=== PATIENT | female | born 1965 | race Caucasian/White ===

== ENCOUNTER 2018-05-10 14:18 | Emergency (ER) | payer BC, SELFPAY ==
[2018-05-10] VITALS (7 sets, daily range): BP systolic 125–158; BP diastolic 69–90; PULSE 88–111; RESP 18; TEMP 37–37.7; O2SAT 95–100
--- NOTE | 2018-05-10 14:41 | W.ED.GENAD ---
Discharge Plan Disposition Patient Disposition: HOME Condition: Fair Discharge Details Chief Complaint: Urinary Clinical Impression: UTI (urinary tract infection) Reason For Visit: urinary Primary Care Provider: Viry,Local ED Provider: Olya Doty Home Meds and New Rx's Prescriptions: New cephalexin [Keflex] 500 mg capsule 500 mg PO BID Qty: 10 RF: 0 phenazopyridine [Pyridium] 200 mg tablet 200 mg PO TID PRN (Reason: pain) 0 Days Qty: 6 RF: 0 Continue cetirizine 10 mg Tablet 10 mg PO DAILY RF: 0 Discharge Instructions Instructions: Urinary Tract Infection in Women (ED) Additional Instructions: Encourage hydration. Tylenol and/or ibuprofen as needed for discomfort. Please take Keflex as prescribed. Even if symptoms improve, please take the entire course. Pyridium was prescribed to help with symptomatic management. If you develop fever/chills, increased pain, inability to hydrate, shortness of breath, increased headache, neck pain, rash or other new/worsening symptoms please seek care urgently once again. I have asked her health care analyst to help facilitate follow-up with primary care, you should receive a call shortly. Medical Decision Making Patient is a 52-year-old female, with history of [id number]-biotudxxc diabetes, presented with chief complaint of dysuria. She reports that when she woke this morning she noted her urine to be quite dark. States she did notice a change in the color on the toilet paper. Denies any rajesh red blood. States she has had some hot sensation associated with urination. Does increase increased frequency and urgency. States the urgency has been to the point that she was incontinent x1 today. Denies any abdominal pain. No change in stool habits. No nausea or vomiting. States she is having some low back pain and indicates the low lumbar spine, as area of discomfort. No CVA tenderness on exam. Just endorsing a mild headache. Reports that she infrequently has headaches. States is quite mild. No thunderclap onset. Denies any change in her vision. No nuchal rigidity. She reports that she is been feeling feverish today but is currently afebrile. Is not taken any antipyretics today. Denies any vaginal symptoms. Patient is status post hysterectomy. No vaginal discharge or vaginal bleeding that she is noted. Pulse 88, patient's oxygen 100%, temp 37 ?C. Plan to obtain urinalysis, CBC and CMP to evaluate for kidney dysfunction. Patient first arrived, nursing staff obtained a urine specimen which was noted to be quite brown. Laboratory evaluation significant for elevated white count of 14 with shift. CMP without significant abnormlality, renal function appropriate. Urinalysis significant for large amount of blood, trace ketones, small bilirubin. Negative for leukocyte esterase and negative nitrite. Secondary to the blood, bacteria and epithelial counselor not applicable. Discussed the findings with the patient. And having difficulty tying all the patient's symptoms together. She continues to endorses mild headache. Is become more tachycardic with a heart rate of 110 she remains afebrile. Did receive Tylenol and ibuprofen to help with discomfort. She also endorsing some body aches. Again, no CVA tenderness, no abdominal pain. No upper respiratory symptoms. We will run influenza. I did discuss with the patient as her symptoms began this morning, and may be just too early to know the exact source of infection. With the blood in the urine, if the influenza screening is negative, I plan to treat for presumed UTI. However, I would like the patient to have prompt follow-up as well as monitor for new or worsening symptoms. Patient negative for influenza a and B. Discussed these findings with the patient. Advised at this point that her symptoms are really point towards a urinary tract infection which may also be causing a spike in her WBC as well as the source of the hematuria. Patient will be treated with Keflex. I encouraged hydration. Advised Tylenol and/or ibuprofen as needed for discomfort. We discussed new/worsening symptoms and when to seek care urgently once again. I have asked her health care analyst help facilitate follow-up with primary care. Urine was sent for culture. We will contact her with any unusual results or if we need to change antibiotic. All of her questions and concerns were addressed and she is in agreement with this plan. HPI General Mode of arrival: ambulatory. Date/Time Provider Initiated Documentation: 05/10/18 14:28. Limitations to Documentation: no limitations. Information obtained by: patient. History of Present Illness 52 year old F presents to the emergency department with the chief complaint of dysurea, headache, described as mild, with intensity rated at 3. Quality is described as aching, and is localized to the head. Patient reports radiation to back (endorsing low back discomfort, also rated at 3/10). Patient started experiencing this hour(s) and it has been constant. No relieving factors improve symptom(s), No exacerbating factors reported . Patient notes fever/chills (states she feels feverish) and headaches; denies chest pain, cough, loss of appetite, malaise, nausea/vomiting, rash, shortness of breath and syncope. Patient did receive the following treatments prior to arrival, none Related Data Home Medications Medication Instructions Recorded Confirmed cephalexin [Keflex] 500 mg PO BID #10 cap 05/10/18 cetirizine 10 mg PO DAILY 05/10/18 05/10/18 phenazopyridine [Pyridium] 200 mg PO TID PRN 0 Days #6 tab 05/10/18 Previous Rx's Medication Instructions Recorded cephalexin [Keflex] 500 mg PO BID #10 cap 05/10/18 phenazopyridine [Pyridium] 200 mg PO TID PRN 0 Days #6 tab 05/10/18 Allergies Allergy/AdvReac Type Severity Reaction Status Date / Time codeine AdvReac Nausea Unverified 05/10/18 14:33 erythromycin base AdvReac Nausea Unverified 05/10/18 14:33 General Stated Complaint: Urinary INGA: 3 Review of Systems Constitutional Reports as per HPI, Denies chills, Reports fever(s), Reports headache(s) and Denies poor appetite ENT Reports headache(s) Cardiovascular Reports as per HPI, Denies chest pain and Denies dyspnea Respiratory Reports as per HPI, Denies cough and Denies dyspnea Gastrointestinal Reports as per HPI, Denies abdominal pain, Denies melena, Denies change in bowel habits, Denies change in stool character, Denies nausea and Denies vomiting Genitourinary Reports as per HPI, Denies abnormal vaginal bleeding, Reports amenorrhea (patient s/p hysterectomy), Reports hematuria, Reports urinary frequency, Denies difficulty voiding, Denies genital pruritis, Denies genital lesions, Reports dysuria, Denies pelvic pain, Denies flank pain, Reports urinary incontinence, Reports urinary urgency, Denies vaginal discharge, Denies vaginal odor and Denies vaginal pruritus Musculoskeletal Reports as per HPI and Reports back pain Integumentary/Breasts Reports as per HPI and Denies rash Neurologic Reports headache(s) [facility] Social History Smoking/Tobacco Use Status: Former Tobacco Use Social History Smoking/Tobacco Use Status: Former Tobacco Use Exam Const General: cooperative, healthy appearing, comfortable, no acute distress, well developed and well groomed Nutritional Appearance: average body habitus and well nourished Orientation: alert and awake Resp Effort & Inspection: normal respiratory effort and no respiratory distress Auscultation: clear to auscultation bilaterally, no rales, no rhonchi and no wheezes Cardio Rate: regular rate Rhythm: regular rhythm Heart Sounds: S1 normal and S2 normal GI Inspection: normal to inspection Palpation: soft, no hepatosplenomegaly, not firm, no guarding, not rigid and nontender Auscultation: normal bowel sounds Back/Spine/Pelvis Back: no CVA tenderness Thoracic/Lumbar Spine: thoraco-lumbar ROM normal and lumbar spinal tenderness (no midline or paraspinal tenderness with palpation, patient is endorsing discomfort across the lower back, she reports minimal discomfort with palpation over the lateral aspects of the lower back, medial t the SI joint) Skin General skin exam: no rashes or lesions noted Trauma: no lacerations or abrasions Neuro General: alert and awake Cognition: normal cognition Speech: speech normal Gait: normal gait Psych Appearance: grossly normal and well kempt Mental Status: mental status grossly normal Speech and Movement: speech and movement normal Course Vital Signs Temperature 37.0 C 05/10/18 14:29 Pulse 88 05/10/18 14:29 Respiratory Rate 18 05/10/18 14:29 Blood Pressure 158/90 H 05/10/18 14:29 Pulse Oximetry 100 05/10/18 14:29 Temperature 37.0 C 05/10/18 14:29 Temperature Source Temporal Artery Scan 05/10/18 14:29 Pulse 88 05/10/18 14:29 Respiratory Rate 18 05/10/18 14:29 Respiratory Effort Non-Labored 05/10/18 14:36 Blood Pressure 158/90 H 05/10/18 14:29 Blood Pressure Position Sitting 05/10/18 14:29 Pulse Oximetry 100 05/10/18 14:29 Oxygen Delivery Method Room Air 05/10/18 14:29 Oxygen Flow Rate 0 05/10/18 14:29 Pain Level 3 05/10/18 14:31
[2018-05-10 14:44] LABS: Bilirubin Small (Negative); Blood Large (Negative); Clarity Cloudy; Glucose Negative (Negative); Ketones Trace mg/dL (Negative); Leukocyte Esterase Negative (Negative); Nitrite Negative (Negative); Specific Gravity 1.025 (1.005-1.025); Urobilinogen 0.2 EU/dL (Up TO 0.2); pH 5.5 (5-8)
--- NOTE | 2018-05-10 14:44 | ED.GENADUL_ITS ---
Discharge Plan Disposition Patient Disposition: HOME Condition: Fair Discharge Details Chief Complaint: Urinary Clinical Impression: UTI (urinary tract infection) Reason For Visit: urinary Primary Care Provider: Viry,Local ED Provider: Olya Doty Home Meds and New Rx's Prescriptions: New cephalexin [Keflex] 500 mg capsule 500 mg PO BID Qty: 10 RF: 0 phenazopyridine [Pyridium] 200 mg tablet 200 mg PO TID PRN (Reason: pain) 0 Days Qty: 6 RF: 0 Continue cetirizine 10 mg Tablet 10 mg PO DAILY RF: 0 Discharge Instructions Instructions: Urinary Tract Infection in Women (ED) Additional Instructions: Encourage hydration. Tylenol and/or ibuprofen as needed for discomfort. Please take Keflex as prescribed. Even if symptoms improve, please take the entire course. Pyridium was prescribed to help with symptomatic management. If you develop fever/chills, increased pain, inability to hydrate, shortness of breath, increased headache, neck pain, rash or other new/worsening symptoms please seek care urgently once again. I have asked her child care director to help facilitate follow-up with primary care , you should receive a call shortly. Medical Decision Making Patient is a 52-year-old female, with history of qov-bahdtkg-ulluziwfr diabetes , presented with chief complaint of dysuria. She reports that when she woke this morning she noted her urine to be quite dark. States she did notice a change in the color on the toilet paper. Denies any rajesh red blood. States she has had some hot sensation associated with urination. Does increase increased frequency and urgency. States the urgency has been to the point that she was incontinent x1 today. Denies any abdominal pain. No change in stool habits. No nausea or vomiting. States she is having some low back pain and indicates the low lumbar spine, as area of discomfort. No CVA tenderness on exam. Just endorsing a mild headache. Reports that she infrequently has headaches. States is quite mild. No thunderclap onset. Denies any change in her vision. No nuchal rigidity. She reports that she is been feeling feverish today but is currently afebrile. Is not taken any antipyretics today. Denies any vaginal symptoms. Patient is status post hysterectomy. No vaginal discharge or vaginal bleeding that she is noted. Pulse 88, patient's oxygen 100%, temp 37 ?C. Plan to obtain urinalysis, CBC and CMP to evaluate for kidney dysfunction. Patient first arrived, nursing staff obtained a urine specimen which was noted to be quite brown. Laboratory evaluation significant for elevated white count of 14 with shift. CMP without significant abnormlality, renal function appropriate. Urinalysis significant for large amount of blood, trace ketones, small bilirubin. Negative for leukocyte esterase and negative nitrite. Secondary to the blood, bacteria and epithelial counselor not applicable. Discussed the findings with the patient. And having difficulty tying all the patient's symptoms together. She continues to endorses mild headache. Is become more tachycardic with a heart rate of 110 she remains afebrile. Did receive Tylenol and ibuprofen to help with discomfort. She also endorsing some body aches. Again, no CVA tenderness, no abdominal pain. No upper respiratory symptoms. We will run influenza. I did discuss with the patient as her symptoms began this morning, and may be just too early to know the exact source of infection. With the blood in the urine, if the influenza screening is negative, I plan to treat for presumed UTI. However, I would like the patient to have prompt follow-up as well as monitor for new or worsening symptoms. Patient negative for influenza a and B. Discussed these findings with the patient. Advised at this point that her symptoms are really point towards a urinary tract infection which may also be causing a spike in her WBC as well as the source of the hematuria. Patient will be treated with Keflex. I encouraged hydration. Advised Tylenol and/or ibuprofen as needed for discomfort. We discussed new/worsening symptoms and when to seek care urgently once again. I have asked her child care director help facilitate follow-up with primary care. Urine was sent for culture. We will contact her with any unusual results or if we need to change antibiotic. All of her questions and concerns were addressed and she is in agreement with this plan. HPI General Mode of arrival: ambulatory . Date/Time Provider Initiated Documentation: 05/10/18 14:28 . Limitations to Documentation: no limitations . Information obtained by: patient . History of Present Illness 52 year old F presents to the emergency department with the chief complaint of dysurea, headache, described as mild, with intensity rated at 3. Quality is described as aching, and is localized to the head. Patient reports radiation to back (endorsing low back discomfort, also rated at 3/10). Patient started experiencing this hour(s) and it has been constant. No relieving factors improve symptom(s), No exacerbating factors reported . Patient notes fever/chills (states she feels feverish) and headaches; denies chest pain, cough, loss of appetite, malaise, nausea/vomiting, rash, shortness of breath and syncope. Patient did receive the following treatments prior to arrival, none Related Data Home Medications Medication Instructions Recorded Confirmed cephalexin [Keflex] 500 mg PO BID #10 cap 05/10/18 cetirizine 10 mg PO DAILY 05/10/18 05/10/18 phenazopyridine [Pyridium] 200 mg PO TID PRN 0 Days #6 tab 05/10/18 Previous Rx's Medication Instructions Recorded cephalexin [Keflex] 500 mg PO BID #10 cap 05/10/18 phenazopyridine [Pyridium] 200 mg PO TID PRN 0 Days #6 tab 05/10/18 Allergies Allergy/AdvReac Type Severity Reaction Status Date / Time codeine AdvReac Nausea Unverified 05/10/18 14:33 erythromycin base AdvReac Nausea Unverified 05/10/18 14:33 General Stated Complaint: Urinary INGA: 3 Review of Systems Constitutional Reports as per HPI, Denies chills, Reports fever(s), Reports headache(s) and Denies poor appetite ENT Reports headache(s) Cardiovascular Reports as per HPI, Denies chest pain and Denies dyspnea Respiratory Reports as per HPI, Denies cough and Denies dyspnea Gastrointestinal Reports as per HPI, Denies abdominal pain, Denies melena, Denies change in bowel habits, Denies change in stool character, Denies nausea and Denies vomiting Genitourinary Reports as per HPI, Denies abnormal vaginal bleeding, Reports amenorrhea ( patient s/p hysterectomy), Reports hematuria, Reports urinary frequency, Denies difficulty voiding, Denies genital pruritis, Denies genital lesions, Reports dysuria, Denies pelvic pain, Denies flank pain, Reports urinary incontinence, Reports urinary urgency, Denies vaginal discharge, Denies vaginal odor and Denies vaginal pruritus Musculoskeletal Reports as per HPI and Reports back pain Integumentary/Breasts Reports as per HPI and Denies rash Neurologic Reports headache(s) [facility] Social History Smoking/Tobacco Use Status: Former Tobacco Use Social History Smoking/Tobacco Use Status: Former Tobacco Use Exam Const General: cooperative, healthy appearing, comfortable, no acute distress, well developed and well groomed Nutritional Appearance: average body habitus and well nourished Orientation: alert and awake Resp Effort & Inspection: normal respiratory effort and no respiratory distress Auscultation: clear to auscultation bilaterally, no rales, no rhonchi and no wheezes Cardio Rate: regular rate Rhythm: regular rhythm Heart Sounds: S1 normal and S2 normal GI Inspection: normal to inspection Palpation: soft, no hepatosplenomegaly, not firm, no guarding, not rigid and nontender Auscultation: normal bowel sounds Back/Spine/Pelvis Back: no CVA tenderness Thoracic/Lumbar Spine: thoraco-lumbar ROM normal and lumbar spinal tenderness ( no midline or paraspinal tenderness with palpation, patient is endorsing discomfort across the lower back, she reports minimal discomfort with palpation over the lateral aspects of the lower back, medial t the SI joint) Skin General skin exam: no rashes or lesions noted Trauma: no lacerations or abrasions Neuro General: alert and awake Cognition: normal cognition Speech: speech normal Gait: normal gait Psych Appearance: grossly normal and well kempt Mental Status: mental status grossly normal Speech and Movement: speech and movement normal Course Vital Signs Temperature 37.0 C 05/10/18 14:29 Pulse 88 05/10/18 14:29 Respiratory Rate 18 05/10/18 14:29 Blood Pressure 158/90 H 05/10/18 14:29 Pulse Oximetry 100 05/10/18 14:29 Temperature 37.0 C 05/10/18 14:29 Temperature Source Temporal Artery Scan 05/10/18 14:29 Pulse 88 05/10/18 14:29 Respiratory Rate 18 05/10/18 14:29 Respiratory Effort Non-Labored 05/10/18 14:36 Blood Pressure 158/90 H 05/10/18 14:29 Blood Pressure Position Sitting 05/10/18 14:29 Pulse Oximetry 100 05/10/18 14:29 Oxygen Delivery Method Room Air 05/10/18 14:29 Oxygen Flow Rate 0 05/10/18 14:29 Pain Level 3 05/10/18 14:31
[2018-05-10] MEDS: Acetaminophen 500 MG TAB 1000 MG PO (14:46)
[2018-05-10] MEDS: Ibuprofen 600 MG TAB PO (14:46)
[2018-05-10 14:50] LABS: C & S Indicated? Yes
[2018-05-10 15:06] LABS: Abs Immature Grans 0.03 k/cumm (0.0-0.09); Absolute Basophil Count 0.03 k/cumm (0.0-0.2); Absolute Eosinophil Count 0.25 k/cumm (0.0-0.7); Absolute Monocyte Count 0.71 k/cumm (0.11-0.7); Basophils % 0.2; Eosinophils % 1.7; HCT 39.4 % (36.0-46.0); HGB 13.3 g/dL (12.0-15.5); Immature Grans % 0.2; Lymphocytes % 18.3; Mean Corp. HGB Concentration 33.8 g/dL (32.0-36.0); Mean Corpuscular Hemoglobin 29.2 pg (27.0-33.0); Mean Corpuscular Volume 86.6 fL (80-95); Mean Platelet Volume 9.3 fL (8.0-11.0); Monocytes % 4.9; Neutrophils % 74.7; Platelet Count 392 x1000/uL (130-400); RBC 4.55 m/cumm (4.00-5.20); RBC Distribution Width 13.7 % (11.7-14.6); White Blood Cell Count 14.46 k/cumm (4.4-10.8)
[2018-05-10 15:16] LABS: Absolute Lymphocyte Count 2.65 k/cumm (1.2-3.4)
[2018-05-10 15:20] LABS: ALT 35 U/L (12-78); AST 24 U/L (15-37); Albumin 3.8 g/dL (3.4-5.0); Alkaline Phosphatase 79 U/L (46-116); Anion Gap 11.3 mmol/L (3-11); BUN 14 mg/dL (7-18); Bilirubin, Total 0.5 mg/dL (0.2-1.0); CO2 27.7 mmol/L (21.0-32.0); CREATININE 0.84 mg/dL (0.55-1.02); Calcium 8.9 mg/dL (8.5-10.1); Chloride 99 mmol/L (98-107); Glucose 178 mg/dL (70-100); Potassium 3.8 mmol/L (3.5-5.1); Sodium 138 mmol/L (136-145); Total Protein 7.6 g/dL (6.4-8.2)
[2018-05-10] MEDS: Cephalexin 500 MG CAP PO (16:20)
== END 2018-05-10 16:26 | disposition home or self-care (01) ==
PROVIDERS: Emergency Provider Physician Assistant
DX: N39.0 Urinary tract infection, site not specified (principal); B96.20 Unspecified Escherichia coli [E. coli] as the cause of diseases classified elsewhere; E11.9 Type 2 diabetes mellitus without complications
CPT/HCPCS: 36415; 80053; 87077; 87449; 99283; 81003; 81015; 85025; 87086; 87186

== ENCOUNTER 2018-07-08 12:47 | Emergency (ER) | payer BC, SELFPAY ==
[2018-07-08 12:52] VITALS: BP 146/78; PULSE 115; RESP 18; TEMP 36; O2SAT 94
--- NOTE | 2018-07-08 13:02 | ED.GENADUL_ITS ---
Discharge Plan Disposition Patient Disposition: HOME Condition: Improving Discharge Details Chief Complaint: RespSymp Clinical Impression: Bronchitis Primary Care Provider: Viry,Local ED Provider: Chadwick Jimenez Home Meds and New Rx's Prescriptions: New amoxicillin-pot clavulanate 875-125 mg tablet 1 tab PO BID 10 Days Qty: 20 RF: 0 Continued cetirizine 10 mg Tablet 10 mg PO DAILY RF: 0 Discontinued cephalexin [Keflex] 500 mg capsule 500 mg PO BID Qty: 10 RF: 0 Discharge Instructions Instructions: Acute Bronchitis (ED) Additional Instructions: Home to rest today. Small, frequent sips of fluids to maintain hydration. Tylenol and/or ibuprofen as needed for aches, pains, fever. Take antibiotics as prescribed. Return for any acute concerns Stand Alone Forms: Work Release Medical Decision Making 52-year-old female presents complaining of 3-4 days of cough, congestion, fever and chills, now with increased production of sputum and bilateral sinus congestion and discomfort. She is been nauseated but tolerated liquids and solids without difficulty. She works as a home health nurse. She arrives with a temperature of 36, pulse 100, normal blood pressure. Influenza screening is negative. Chest x-ray without focal infiltrate. I do feel she is developing a sinusitis & will treat appropriately with a course of antibiotics. HPI General Mode of arrival: ambulatory . Date/Time Provider Initiated Documentation: 07/08/18 12:48 . Limitations to Documentation: no limitations . Information obtained by: patient . History of Present Illness 52 year old F presents to the emergency department with the chief complaint of Cough, congestion, fever and chills. Nausea without emesis, described as moderate, Quality is described as aching, dull and constant, and is localized to the chest. Patient reports no radiation. Patient started experiencing this day(s) and it has been constant. No relieving factors improve symptom(s), No exacerbating factors reported . Patient notes cough, fever/chills, loss of appetite and malaise. Related Data Home Medications Medication Instructions Recorded Confirmed cetirizine 10 mg PO DAILY 05/10/18 05/10/18 amoxicillin-pot clavulanate 1 tab PO BID 10 Days #20 tab 07/08/18 Previous Rx's Medication Instructions Recorded amoxicillin-pot clavulanate 1 tab PO BID 10 Days #20 tab 01/30/19 Allergies Allergy/AdvReac Type Severity Reaction Status Date / Time codeine AdvReac Nausea Unverified 05/10/18 14:33 erythromycin base AdvReac Nausea Unverified 05/10/18 14:33 General Stated Complaint: RespSymp INGA: 4 Review of Systems Review of Systems 8 systems reviewed and otherwise negative [facility] Social History Smoking/Tobacco Use Status: Former Tobacco Use Exam Narrative Exam Narrative: GEN: awake, alert, oriented 3. Pleasant, well groomed, interactive. HEAD: Normocephalic, atraumatic ENT: Mucous membranes dry, oropharynx unremarkable, External ear exam unremarkable EYES: PERRL, EOMI NECK: Full ROM, no AMANDA, no menigismus CHEST/RESP: Nontender, clear to auscultation bilateral, no wheeze/rhonchi/rales CARDIOVASCULAR: Borderline tachycardia, no murmur, rub paul. 2+ Rad pulse bilateral ABDOMEN: Soft, nontender, no mass. +Bowel sounds EXT: Full ROM, no edema, no rash Neuro: Grossly normal neurologic exam, conversant, interactive. Psych: Speech fluent, thoughts congruent, affect normal Course Vital Signs Temperature 36.0 C L 07/08/18 12:52 Pulse 115 H 07/08/18 12:52 Respiratory Rate 18 07/08/18 12:52 Blood Pressure 146/78 H 07/08/18 12:52 Pulse Oximetry 94 L 07/08/18 12:52 Temperature 36.0 C L 07/08/18 12:52 Temperature Source Temporal Artery Scan 07/08/18 12:52 Pulse 115 H 07/08/18 12:52 Respiratory Rate 18 07/08/18 12:52 Respiratory Effort Non-Labored 07/08/18 12:59 Blood Pressure 146/78 H 07/08/18 12:52 Blood Pressure Position Sitting 07/08/18 12:52 Pulse Oximetry 94 L 07/08/18 12:52 Oxygen Delivery Method Room Air 07/08/18 12:52 Oxygen Flow Rate 0 07/08/18 12:52 Pain Level 2 07/08/18 12:52 Lab/Test Results Lab/Test Results: 07/08/18 12:59 Nasopharynx Influenza Types A,B Antigen - Pending
[2018-07-08] MEDS: Ibuprofen 800 MG TAB PO (13:16)
--- NOTE | 2018-07-08 13:20 | DI.RAD_ITS ---
SYMPTOMS/DIAGNOSIS: FEVER, COUGH PA AND LATERAL CHEST: The heart is not enlarged. The diaphragm appears mildly elevated on the right. Lungs are clear. No pleural effusion seen. CONCLUSION: Mild diaphragmatic elevation on the right of uncertain chronicity. Please correlate clinically. If the patient has had previous chest radiographs at other institutions, I would recommend these be obtained for comparison.
== END 2018-07-08 13:46 | disposition home or self-care (01) ==
LOC: ER 13:49
PROVIDERS: Emergency Provider Emergency Medicine
DX: J20.9 Acute bronchitis, unspecified (principal)
CPT/HCPCS: 87449; 99283; 71046

== ENCOUNTER 2019-04-30 18:07 | Outpatient (REF) | payer OTHER, SELFPAY ==
[2019-05-03 11:54] LABS: HIV-1/2 Ag & Ab Screen Negative (Negative)
[2019-05-03 11:55] LABS: Hepatitis B Surface Ag Negative (Negative)
[2019-05-03 12:52] LABS: Hepatitis C Ab w Rflx HCV PCR Negative (Negative)
== END 2019-04-30 18:27 ==
LOC: NCHCN 18:07
PROVIDERS: Visit Provider Family Medicine
DX: Z20.9 Contact with and (suspected) exposure to unspecified communicable disease (principal); Z11.4 Encounter for screening for human immunodeficiency virus [HIV]; Z11.59 Encounter for screening for other viral diseases
CPT/HCPCS: 86803; 87340; 87389